=== PATIENT | male | born 1995 | race Two or more races ===

== ENCOUNTER 2020-12-08 07:28 | Outpatient (CLI) | payer BC, SELFPAY ==
--- NOTE | ~2020-12-08 | NM_ITS ---
EXAMINATION: NM bone scan whole body DATE: 12/08/2020 10:42 INDICATION: Bilateral leg pain. TECHNIQUE: 26.4 mCi Tc-99m HDP was administered intravenously. Delayed whole-body scintigrams were o btained. COMPARISON: Bilateral tibia and fibula radiographs 11/15/2020 FINDINGS: There is a normal distribution of activity in the bones. IMPRESSION: 1. No etiology for the patient's symptoms. Reviewed, dictated and finalized at location A.
== END 2020-12-08 07:29 | disposition home or self-care (01) ==
LOC: ANHIMG 07:39
PROVIDERS: PCP Family Medicine; Visit Provider Orthopaedic Surgery
DX: M79.661 Pain in right lower leg (principal)
CPT/HCPCS: 78306; A9561